=== PATIENT | male | born 1980 | race Caucasian/White ===

== ENCOUNTER → 2016-10-06 | Outpatient (CLI) | payer BC ==
[~2016-10-06] MED LIST: ALPRAZOLAM0.5 MG PO; FLEXERIL10 MG PO; HYDROXYZINE 25M25 MG PO; MEDROL 4MG. DOSE4 MG PO; METOCLOPRAMIDE10 M2 PO; Mobic7.5 MG PO; PRILOSEC OTC20 MG PO; SUCRALFATE 1GM T1 GM NG; ULTRAM 50 MG TA50 MG PO
== END ==
LOC: RT 11:39
DX: R42 Dizziness and giddiness (principal); M54.2 Cervicalgia